=== PATIENT | female | born 1990 | race Caucasian/White ===

== ENCOUNTER 2020-12-22 10:43 | Emergency (ER) | payer BC ==
[2020-12-22] MEDS ORDERED: TYLENOL 325 MG PO ONE (11:21)
[2020-12-22] MEDS ORDERED: Sodium Chloride 0.9% 1000 ML 1,000 ML IV STA (11:21)
[2020-12-22] MEDS ORDERED: Pepcid 20 MG VIAL IV ONE ×2 (11:21→11:24)
[2020-12-22] MEDS ORDERED: Zofran 4 MG/2 ML VIAL IV ONE (11:22)
[2020-12-22] MEDS ORDERED: Zofran 4 MG/2 ML VIAL ONE (11:24)
[2020-12-22] MEDS ORDERED: Sodium Chloride 0.9% 1000 ML 1,000 ML ONE (11:24)
[2020-12-22] MEDS ORDERED: TYLENOL 325 MG ONE (11:24)
[2020-12-22 12:07] LABS: Appearance SLIGHTLY CLOUDY (CLEAR); Bilirubin NEGATIVE (NEGATIVE); Blood NEGATIVE Ery/ul (0-5); Glucose NEGATIVE (NEGATIVE); Ketones NEGATIVE (NEGATIVE); Leukocyte Esterase NEGATIVE (NEGATIVE); Mucus MANY /HPF (NEGATIVE); Nitrite NEGATIVE (NEGATIVE); Protein,Urine Dip NEGATIVE (Negative); Specific Gravity 1.021 (1.005-1.025); Urobilinogen NEGATIVE mg/dL (0-1); WBC 0-2 /HPF (0-5)
[2020-12-22 12:09] LABS: Absolute Neutrophil Ct (ANC) 6.92 (1.4-6.9); BASOPHIL % 0.1 % (0.0-0.4); Basophil (Absolute #) 0.01 (0-0.4); Eosinophil % 0.9 % (0.00-5.0); Eosinophil (Absolute #) 0.09 (0-0.5); Hematocrit 36.3 % (35-47); Hemoglobin 11.2 gm/dl (12.0-16.0); Lymphocyte (Absolute #) 2.44 (1.0-4.6); Lymphocytes % 24.1 % (24.0-44.0); Mean Cell Volume 92.4 fl (78-100); Mean Corpuscular Hemoglobin 28.5 pg (26-32); Mean Corpuscular Hgb Concent. 30.9 g/dl (32-36); Mean Platelet Volume 10.4 fl (7.5-11.0); Monocyte (Absolute #) 0.68 (0.0-1.3); Monocytes % 6.7 % (0.0-12.0); Neutrophil % 68.2 % (36.0-66.0); Platelet Count 274 K/mm3 (150-450); Red Blood Count 3.93 M/mm3 (4.1-5.4); Red Cell Distribution Width 13.5 % (11.5-14.0); White Blood Count 10.1 K/mm3 (4.0-10.5)
--- NOTE | 2020-12-22 12:32 | XRAY ---
Indication: Right upper quadrant/epigastric pain. Two-dimensional gallbladder sonogram performed. Comparison: None Gallbladder contracted as the patient was not adequately NPO for exam. There appears to be multiple intraluminal hyperechogenicities producing posterior shadowing suggesting gallstones. Common bile duct measures 2.2 mm. No intrahepatic biliary distention. Remaining visualized liver and right kidney appear sonographically normal. Right kidney measures 11.2 cm in length. Impression: Contracted gallbladder. Suspect cholelithiasis.
[2020-12-22 12:35] LABS: ALBUMIN 4.5 g/dL (3.5-5.0); ALKALINE PHOSPHATASE 53 U/L (38-126); ANION GAP 13.2 MEQ/L (5-15); BLOOD UREA NITROGEN 9 mg/dL (7-17); CHLORIDE 103 mmol/L (98-107); Calcium 9.7 mg/dL (8.4-10.2); Carbon Dioxide 25 mmol/L (22-30); Creatinine 1 0.67 mg/dL (0.52-1.04); EST GLOMERULAR FILTRATION RATE > 60.0 ML/MIN; Glucose 76 mg/dL (74-106); LIPASE 57 U/L (23-300); SGOT/AST 30 U/L (14-36); SGPT/ALT 32 U/L (0-35); SODIUM 137 mmol/L (137-145); Total Protein 8.2 g/dL (6.3-8.2)
--- NOTE | 2020-12-22 12:35 | XRAY ---
Indication: Low back pain. Two-dimensional transabdominal early OB ultrasound performed. Comparison: None There is a single intrauterine gestational sac with presence of a single pole and yolk sac. Mean crown-rump length measures 0.69 cm corresponding to 6 weeks 4 days. heart rate 134 bpm. Tiny 9 mm subchorionic hemorrhage. Left ovary unremarkable. Right ovary not seen. No suspicious adnexal mass or free fluid. Impression: Single viable intrauterine measuring 6 weeks 4 days. Expected date confinement is August 13, 2021. Very tiny subchorionic hemorrhage.
[2020-12-22 12:59] LABS: HCG, Quantitative (Inhouse) 45877 mIU/ml
--- NOTE | 2020-12-22 13:14 | ERPHSYRPT ---
- History of Present Illness Time Seen by Provider: 12/22/20 11:12 Historian: patient Exam Limitations: no limitations Patient Subjective Stated Complaint: Pt states "I am 7 weeks preganant and today I have abdominal pain and back pain." Triage Nursing Assessment: PT presented alert and oriented X 3, skin pwd Pt ambulates with an upright steady gait, able to speak in clear full sentences pt in no apparent respiratory distress. Physician History: 30 years old 4 para 2 at almost 7 weeks gestation per LMP presented in the ER with chief complaint of abdominal pain since last night. Patient reports sudden onset epigastric and right upper quadrant pain moderate intensity, sharp in nature without any radiation and associated with nausea and has 3 episodes of vomiting this morning. Patient report having morning sickness and occasional vomiting. She is also complaining of low back pain and mild suprapubic discomfort but denies any vaginal bleeding or discharge or pelvic cramping. Patient reports no history of gallstones, fever chills. Denies any urinary symptoms. Timing/Duration: yesterday, gradual onset, worse Activities at Onset: rest Quality: sharpness Abdominal Pain Onset Location: RUQ, epigastric, suprapubic Pain Radiation: no radiation Severity of Pain-Max: moderate Severity of Pain-Current: moderate Associated Symptoms: back Allergies/Adverse Reactions: cefaclor [From [facility]] Allergy (Intermediate, Verified 12/22/20 10:57) [facility] Home Medications: Vits W-Ca,Fe,FA(<1Mg) [] 1 each PO DAILY 12/22/20 [History] Hx Tetanus, Diphtheria Vaccination/Date Given: No Hx Influenza Vaccination/Date Given: No Hx Pneumococcal Vaccination/Date Given: No Immunizations Up to Date: Yes Travel Risk - International Travel Have you traveled outside of the country in past 3 weeks: No - Coronavirus Screening Are you exhibiting any of the following symptoms?: No Close contact with a COVID-19 positive Pt in past 14-21 Days: No - Review of Systems Constitutional: No Symptoms Eyes: No Symptoms Ears, Nose, & Throat: No Symptoms Respiratory: No Symptoms Cardiac: No Symptoms Abdominal/Gastrointestinal: Abdominal Pain, Nausea, Vomiting Genitourinary Symptoms: No Symptoms Musculoskeletal: No Symptoms Skin: No Symptoms Neurological: No Symptoms Psychological: No Symptoms Endocrine: No Symptoms Hematologic/Lymphatic: No Symptoms Immunological/Allergic: No Symptoms - Past Medical History Pertinent Past Medical History: No - Past Surgical History Past Surgical History: Yes Other Surgical History: appi. left wrist. tubal on right ovary - Social History Smoking Status: Never smoker Exposure to second hand smoke: Yes Drug Use: none Patient Lives Alone: Yes - Female History Hx Last Menstrual Period: 12/02/2020 Hx Now: Yes Expected Date of Delivery: 08/09/21 - Nursing Vital Signs Nursing Vital Signs: Initial Vital Signs Temperature 98.5 F 12/22/20 10:51 Pulse Rate 84 12/22/20 10:51 Respiratory Rate 20 12/22/20 10:51 Blood Pressure 131/94 12/22/20 10:51 O2 Sat by Pulse Oximetry 99 12/22/20 10:51 Pain Scale Pain Intensity [Lower Back] 6 Pain Intensity 6 - Physical Exam General Appearance: no apparent distress, alert Eye Exam: eyes nml inspection Ears, Nose, Throat Exam: normal ENT inspection, pharynx normal Neck Exam: normal inspection, non-tender, supple, full range of motion Respiratory Exam: normal breath sounds, lungs clear Cardiovascular Exam: regular rate/rhythm, normal heart sounds Gastrointestinal/Abdomen Exam: soft, normal bowel sounds, tenderness (Minimal tenderness epigastrium and right upper quadrant. Negative Valdez sign. No guarding.), No guarding, No rebound Back Exam: normal inspection, normal range of motion, No CVA tenderness Extremity Exam: normal inspection, normal range of motion Neurologic Exam: alert, oriented x 3, cooperative Skin Exam: normal color SpO2 Interpretation: normal SpO2: 100 O2 Delivery: Room Air Ordered Tests: Active Orders 24 hr Category Date Time Status IV Insertion STAT Care 12/22/20 11:21 Active GALLBLADDER [US] Stat Exams 12/22/20 11:20 Completed OB <14 WKS 1ST GESTATION [US] Stat Exams 12/22/20 11:20 Completed CBC W DIFF Stat Lab 12/22/20 11:21 Completed CMP Stat Lab 12/22/20 12:00 Completed HCG, Quantitative (Inhouse) Stat Lab 12/22/20 12:00 Completed LIPASE Stat Lab 12/22/20 12:00 Completed UA W/RFX UR CULTURE Stat Lab 12/22/20 11:55 Completed Medication Summary Discontinued Medications Generic Name Dose Route Start Last Admin Trade Name Freq PRN Reason Stop Dose Admin Acetaminophen 975 mg 12/22/20 11:21 12/22/20 11:27 Tylenol 325 Mg PO 12/22/20 11:22 975 mg STAT ONE Administration Acetaminophen Confirm 12/22/20 11:24 Tylenol 325 Mg Administered 12/22/20 11:25 Dose 975 mg .ROUTE .STK-MED ONE Famotidine 20 mg 12/22/20 11:21 12/22/20 11:27 Pepcid 20 Mg Vial IV 12/22/20 11:22 20 mg STAT ONE Administration Famotidine Confirm 12/22/20 11:24 Pepcid 20 Mg Vial Administered 12/22/20 11:25 Dose 20 mg IV .STK-MED ONE Sodium Chloride 1,000 mls @ 999 mls/hr 12/22/20 11:21 12/22/20 12:47 Sodium Chloride 0.9% 1000 Ml IV 12/22/20 12:21 Infused .Q1H1M STA Infusion Sodium Chloride Confirm 12/22/20 11:24 Sodium Chloride 0.9% 1000 Ml Administered 12/22/20 11:25 Dose 1,000 mls @ ud .ROUTE .STK-MED ONE Ondansetron HCl 4 mg 12/22/20 11:22 12/22/20 11:26 Zofran 4 Mg/2 Ml Vial IV 12/22/20 11:23 4 mg STAT ONE Administration Ondansetron HCl Confirm 12/22/20 11:24 Zofran 4 Mg/2 Ml Vial Administered 12/22/20 11:25 Dose 4 mg .ROUTE .STK-MED ONE Lab/Rad Data: Laboratory Result Diagrams 12/22/20 11:21 12/22/20 12:00 Laboratory Results 12/22/20 12/22/20 12/22/20 Range/Units 12:00 11:55 11:21 WBC 10.1 (4.0-10.5) K/mm3 RBC 3.93 L (4.1-5.4) M/mm3 Hgb 11.2 L (12.0-16.0) gm/dl Hct 36.3 (35-47) % MCV 92.4 (78-100) fl MCH 28.5 (26-32) pg MCHC 30.9 L (32-36) g/dl RDW 13.5 (11.5-14.0) % Plt Count 274 (150-450) K/mm3 MPV 10.4 (7.5-11.0) fl Gran % 68.2 H (36.0-66.0) % Eos # (Auto) 0.09 (0-0.5) Absolute Lymphs (auto) 2.44 (1.0-4.6) Absolute Monos (auto) 0.68 (0.0-1.3) Lymphocytes % 24.1 (24.0-44.0) % Monocytes % 6.7 (0.0-12.0) % Eosinophils % 0.9 (0.00-5.0) % Basophils % 0.1 (0.0-0.4) % Absolute Granulocytes 6.92 H (1.4-6.9) Basophils # 0.01 (0-0.4) Sodium 137 (137-145) mmol/L Potassium 4.0 (3.5-5.1) mmol/L Chloride 103 (98-107) mmol/L Carbon Dioxide 25 (22-30) mmol/L Anion Gap 13.2 (5-15) MEQ/L BUN 9 (7-17) mg/dL Creatinine 0.67 (0.52-1.04) mg/dL Estimated GFR > 60.0 ML/MIN Glucose 76 (74-106) mg/dL Calcium 9.7 (8.4-10.2) mg/dL Total Bilirubin 0.30 (0.2-1.3) mg/dL AST 30 (14-36) U/L ALT 32 (0-35) U/L Alkaline Phosphatase 53 (38-126) U/L Serum Total Protein 8.2 (6.3-8.2) g/dL Albumin 4.5 (3.5-5.0) g/dL Lipase 57 (23-300) U/L Beta HCG, Quant 91053 mIU/ml Urine Color YELLOW (YELLOW) Urine Appearance SLIGHTLY CLOUDY (CLEAR) Urine pH 5.0 (5-6) Ur Specific [place] 1.021 (1.005-1.025) Urine Protein NEGATIVE (Negative) Urine Ketones NEGATIVE (NEGATIVE) Urine Blood NEGATIVE (0-5) [place] Urine Nitrite NEGATIVE (NEGATIVE) Urine Bilirubin NEGATIVE (NEGATIVE) Urine Urobilinogen NEGATIVE (0-1) mg/dL Ur Leukocyte Esterase NEGATIVE (NEGATIVE) Urine WBC (Auto) 0-2 (0-5) /HPF Urine RBC (Auto) NONE (0-2) /HPF U Epithel Cells (Auto) NONE (FEW) /HPF Urine Bacteria (Auto) NONE (NEGATIVE) /HPF Urine Mucus (Auto) MANY (NEGATIVE) /HPF Urine Culture Reflexed NO (NO) Urine Glucose NEGATIVE (NEGATIVE) mg/dL - Progress Progress: improved, re-examined Progress Note: 12/22/20 13:29 30 years old is evaluated for right upper quadrant/epigastric and low back pain. She is given fluid bolus and Tylenol along with Zofran and Pepcid, on reevaluation her pain is almost completely resolved. She does not have any vomiting while in the ER. She has a negative Valdez sign. I have obtained ultrasound gallbladder which showed possible cholelithiasis but no gallbladder wall thickening, CBD dilated, ivette cholecystic fluid suggesting acute cholecystitis. She probably have biliary colic. She has normal LFTs, white count. No UTI. I do not think patient needs emergent surgical consultation but needs to have follow-up with general surgery and have made appointment with Dr. Keith Herrmann on 27 December for outpatient evaluation. I have also obtained ultrasound pelvis transvaginal which showed single IUP with good heart tone and minimal subchorionic hemorrhage. Recommended hydration, pelvic rest and outpatient follow-up with her [facility]. At this point I do not think patient needs to be admitted or needs any further work-up, recommended taking Zofran at home as needed, Tylenol, hydration and outpatient follow-up. Discussed signs symptoms of worsening needing return to ER which patient seems understanding. Stable for discharge. Counseled pt/family regarding: lab results, diagnosis, need for follow-up, rad results - Departure Departure Disposition: Home Clinical Impression: Biliary colic symptom Subchorionic hematoma in first trimester Qualifiers: Fetus number: single or unspecified fetus Qualified Code(s): O41.8X10 - Other specified disorders of amniotic fluid and membranes, first trimester, not applicable or unspecified; O46.8X1 - Other antepartum hemorrhage, first trimester Condition: Stable Critical Care Time: No Referrals: DOCTOR,NO FAMILY [Primary Care Provider] - KEITH HERRMANN MD [ASSOCIATE STAFF] - (As scheduled on 27 December) Instructions: Gallstones (DC), Subchorionic Bleeding Additional Instructions: Keep yourself well-hydrated. Take Tylenol/Zofran as needed. Pelvic rest. Follow-up with general surgery for reevaluation as scheduled on . Follow-up with your [facility] for reevaluation in 1 to 2 days. Call for appointment today. Return to ER for increasing pain, vomiting, vaginal bleeding discharge etc. Prescriptions: Ondansetron ODT 4 MG [Zofran Odt 4 mg] 4 mg PO Q6H PRN PRN #20 tab.rapdis PRN Reason: Vomiting
[2020-12-22 13:17] VITALS: BP 116/70; PULSE 61
[2020-12-22 13:20] VITALS: O2SAT 100
== END 2020-12-22 13:54 | disposition home or self-care (01) ==
LOC: ED 10:43
DX: O20.8 Other hemorrhage in early pregnancy (principal); Z3A.01 Less than 8 weeks gestation of pregnancy
CPT/HCPCS: 36000; 36415; 76705; 76801; 80053; 81001; 83690; 84702; 85025; 96374; 96375; 99284; J2405; A9270-GY

== ENCOUNTER 2023-06-30 21:19 | Emergency (ER) | payer BC, OTHER ==
--- NOTE | 2023-06-30 21:36 | ERPHSYRPT ---
- History of Present Illness Time Seen by Provider: 06/30/23 21:36 Historian: patient Exam Limitations: no limitations Allergies/Adverse Reactions: cefaclor [From Ceclor] Allergy (Intermediate, Verified 06/30/23 21:29) ceclor Hx Tetanus, Diphtheria Vaccination/Date Given: No Hx Influenza Vaccination/Date Given: No Hx Pneumococcal Vaccination/Date Given: No - Past Medical History Pertinent Past Medical History: No - Past Surgical History Past Surgical History: Yes Other Surgical History: appi. left wrist. tubal on right ovary - Social History Smoking Status: Never smoker Exposure to second hand smoke: Yes Drug Use: none Patient Lives Alone: Yes - Nursing Vital Signs Nursing Vital Signs: Initial Vital Signs Temperature 97.1 F 06/30/23 21:29 Pulse Rate 69 06/30/23 21:29 Respiratory Rate 18 06/30/23 21:29 Blood Pressure 136/91 06/30/23 21:29 O2 Sat by Pulse Oximetry 98 06/30/23 21:29 Pain Scale Pain Intensity 2 Ordered Tests: Active Orders 24 hr Category Date Time Status HCG, Quantitative (Inhouse) Stat Lab 06/30/23 21:45 Completed UA W/RFX UR CULTURE Stat Lab 06/30/23 22:15 Completed Medication Summary Generic Name Dose Route Start Last Admin Trade Name Freq PRN Reason Stop Dose Admin Metoclopramide HCl 10 mg 06/30/23 22:00 06/30/23 22:22 Metoclopramide Hcl 10 Mg Tablet PO 07/30/23 21:59 10 mg ACHS JENNI Administration Discontinued Medications Generic Name Dose Route Start Last Admin Trade Name Freq PRN Reason Stop Dose Admin Acetaminophen 500 mg 06/30/23 22:19 06/30/23 22:21 Acetaminophen 500 Mg Tablet PO 06/30/23 22:20 500 mg STAT STA Administration Acetaminophen Confirm 06/30/23 22:21 Acetaminophen 500 Mg Tablet Administered 06/30/23 22:22 Dose 500 mg .ROUTE .STK-MED ONE Lab/Rad Data: Laboratory Results 06/30/23 06/30/23 06/30/23 Range/Units 22:15 21:45 21:45 Beta HCG, Quant 53274 mIU/ml Urine Color Yellow (Yellow) Urine Appearance Turbid A (Clear) Urine pH 7.5 (4.6-8.0) Ur Specific [place] 1.010 (1.005-1.030) Urine Protein Negative (Negative) Urine Glucose (UA) Negative (Negative) mg/dL Urine Ketones Negative (Negative) Urine Blood Negative (Negative) Urine Nitrite Negative (Negative) Urine Bilirubin Negative (Negative) Urine Urobilinogen 0.2 (0.2) mg/dL Ur Leukocyte Esterase Trace A (Negative) U Hyaline Cast (Auto) NONE SEEN (0-2) /LPF Urine Microscopic RBC 0-2 (0-5) /HPF Urine Microscopic WBC 0-2 (0-5) /HPF Ur Epithelial Cells None Seen (None Seen) /HPF Urine Bacteria None Seen (None Seen) /HPF Urine Culture Reflexed NO (NO) Influenza Type A Ag NEGATIVE (NEGATIVE) Influenza Type B Ag NEGATIVE (NEGATIVE) RSV (PCR) NEGATIVE (NEGATIVE) SARS-CoV-2 (PCR) NEGATIVE (NEGATIVE) - Departure Departure Disposition: Home Clinical Impression: Nausea and vomiting during Condition: Good Critical Care Time: No Referrals: LAUREN DOOLEY MD [Primary Care Provider] - Follow up/PCP as directed Forms: Work/School Release Form Prescriptions: Doxylamine Succinate/Vit B6 [Doxylamine-Pyridoxine 10-10 mg] 1 each PO Q6H PRN 30 Days #120 tablet MDD 4 tabs PRN Reason: nausea Metoclopramide HCl [Reglan] 10 mg PO BID PRN #10 tablet PRN Reason: Nausea/Vomiting
[2023-06-30 21:44] VITALS: RESP 18; TEMP 97.1; O2SAT 98
[2023-06-30] MEDS ORDERED: Reglan 10 MG PO SCH (22:00)
[2023-06-30] MEDS ORDERED: Reglan 10 MG ONE (22:05)
[2023-06-30] MEDS ORDERED: TYLENOL EXTRA STRENGTH 500 MG PO STA (22:19)
[2023-06-30] MEDS ORDERED: TYLENOL EXTRA STRENGTH 500 MG ONE (22:21)
[2023-06-30 22:28] LABS: Appearance Turbid (Clear); Bacteria None Seen /HPF (None Seen); Bilirubin Negative (Negative); Blood Negative (Negative); Epithelial Cells None Seen /HPF (None Seen); Glucose, Urine Negative (Negative); Hyaline Casts NONE SEEN /LPF (0-2); Ketones Negative (Negative); Leukocyte Esterase Trace (Negative); Nitrite Negative (Negative); Ph 7.5 (4.6-8.0); Protein,Urine Dip Negative (Negative); RBC 0-2 /HPF (0-5); Urobilinogen 0.2 mg/dL (0.2); WBC 0-2 /HPF (0-5)
[2023-06-30 22:33] LABS: INFLUENZA A NEGATIVE (NEGATIVE); INFLUENZA B NEGATIVE (NEGATIVE); RESPIRATORY SYNCTIAL VIRUS NEGATIVE (NEGATIVE); SARS-CoV-2 Xpert Express NEGATIVE (NEGATIVE)
[2023-06-30 22:34] LABS: ADD URINE CULTURE? NO (NO)
[2023-06-30 23:03] VITALS: BP 123/80; PULSE 63
== END 2023-06-30 23:44 | disposition home or self-care (01) ==
LOC: ED 21:19
DX: O21.9 Vomiting of pregnancy, unspecified (principal)
CPT/HCPCS: 0241U; 36415; 81001; 84702; 99283; A9270-GY